=== PATIENT | male | born 1955 ===

== ENCOUNTER 2020-08-26 23:06 | Inpatient (IN) | payer BC ==
[~2020-08-26] VITALS: Ht 167.6 cm; Wt 78.9 kg
[~2020-08-26 23:06] MED LIST: LEVAQUIN500 MG PO; ULTRACET PO
[2020-08-26] MEDS ORDERED: EDARBYCLOR 40-1 EAC1 (23:26)
[2020-09-14] MEDS ORDERED: EDARBI40 MG PO (14:37)
[2020-09-29] MEDS ORDERED: EDARBYCLOR 40-1 EAC1 PO (18:47)
== END 2020-09-12 18:14 | disposition home or self-care (01) | DRG 682 ==
LOC: ER 23:06 → ICU-2 08-27 07:47 → MEDI 08-27 07:47 → ICU 08-27 20:00 → MEDI 08-28 15:53
PROVIDERS: ADMIT Internal Medicine; ATTEND Internal Medicine
PROC: BW21ZZZ Computerized Tomography (CT Scan) of Abdomen and Pelvis (ICD-10-PCS; 2020-08-27)
PROC: 8E0ZXY6 Isolation (ICD-10-PCS; principal; 2020-08-28)
PROC: BW40ZZZ Ultrasonography of Abdomen (ICD-10-PCS; 2020-08-29)
PROC: CD171ZZ Planar Nuclear Medicine Imaging of Gastrointestinal Tract using Technetium 99m (Tc-99m) (ICD-10-PCS; 2020-09-05)
PROC: 30233N1 Transfusion of Nonautologous Red Blood Cells into Peripheral Vein, Percutaneous Approach (ICD-10-PCS; 2020-09-06)
PROC: 0DJ08ZZ Inspection of Upper Intestinal Tract, Via Natural or Artificial Opening Endoscopic (ICD-10-PCS; 2020-09-06)
PROC: B24BZZZ Ultrasonography of Heart with Aorta (ICD-10-PCS; 2020-09-06)
PROC: CB2YYZZ Tomographic (Tomo) Nuclear Medicine Imaging of Respiratory System using Other Radionuclide (ICD-10-PCS; 2020-09-09)
PROC: BW21ZZZ Computerized Tomography (CT Scan) of Abdomen and Pelvis (ICD-10-PCS; 2020-09-09)
DX: N17.0 Acute kidney failure with tubular necrosis (principal); K85.90 Acute pancreatitis without necrosis or infection, unspecified; A02.9 Salmonella infection, unspecified; K57.32 Diverticulitis of large intestine without perforation or abscess without bleeding; D62 Acute posthemorrhagic anemia; J98.11 Atelectasis; D61.818 Other pancytopenia; L03.113 Cellulitis of right upper limb; E86.0 Dehydration; I10 Essential (primary) hypertension; E66.8 Other obesity; Z20.828 Contact with and (suspected) exposure to other viral communicable diseases; E87.6 Hypokalemia
CPT/HCPCS: 71275

== ENCOUNTER 2020-11-05 09:41 | Outpatient (CLI) | payer BC ==
[~2020-11-05 09:41] MED LIST changes: +EDARBI40 MG PO; +EDARBYCLOR 40-1 EAC1; +EDARBYCLOR 40-1 EAC1 PO
== END 2020-11-05 09:52 | disposition home or self-care (01) ==
LOC: LAB 09:41
PROVIDERS: ATTEND Internal Medicine Gastroenterology
DX: N40.0 Benign prostatic hyperplasia without lower urinary tract symptoms (principal); K25.3 Acute gastric ulcer without hemorrhage or perforation; I10 Essential (primary) hypertension